=== PATIENT | female | born 1955 | race Caucasian/White ===

== ENCOUNTER → 2016-05-24 | Outpatient (CLI) | payer OTHER ==
[~2016-05-24] MED LIST: ACID REDUCER; CALC-671 PO; CETI10TA17 PO; GABA-488 PO; HERCEPTIN; KOMBIGLYZE; LETR2.5T5 PO; LIRA0.6P SQ; LOSA1TAB23 PO; MELA10TA3 PO; Metoprolol ER; Simvastatin
--- NOTE | 2016-05-24 14:27 | Diagnostic Imaging Report ---
INDICATION: Elevated LFTs. FINDINGS: Real-time imaging shows mild increased echogenicity of the liver consistent with some fatty change. The liver is not enlarged. Bile ducts are not dilated. Common duct measures 4 mm. Gallbladder appears normal with gallbladder wall measuring 2 mm. There is no pericholecystic edema. The body and tail of the pancreas are not well visualized. Right kidney appears normal measuring 10.3 x 5.1 cm. There is a 1.5-cm cortical cyst incidentally noted. There is no ascites. The portal and hepatic vein are patent. IMPRESSION: 1. Findings consistent with mild hepatic steatosis. 2. Normal-appearing gallbladder and bile ducts. 3. A 1.5-cm cyst, cortex of the right kidney. Dictated by: Dictated on workstation # [id number]
== END ==
LOC: RAD 13:30
PROVIDERS: ATTEND Family Medicine
DX: K76.0 Fatty (change of) liver, not elsewhere classified (principal); K28.1 Acute gastrojejunal ulcer with perforation; Z85.3 Personal history of malignant neoplasm of breast
CPT/HCPCS: 76705

== ENCOUNTER → 2016-10-03 | Outpatient (CLI) | payer OTHER ==
[2016-10-03 13:43] LABS: BASOPHILS # (AUTO) 0.1 10^3/uL (0.0-0.1); BASOPHILS % (AUTO) 1 % (0-10); EOSINOPHILS # (AUTO) 0.8 10^3/uL (0.0-0.3); EOSINOPHILS % (AUTO) 9 % (0-10); LYMPHOCYTES # (AUTO) 3.2 X 10^3 (1.0-4.0); LYMPHOCYTES % (AUTO) 35 % (12-44); MEAN CORPUSCULAR HEMOGLOBIN 32 PG (25-34); MEAN CORPUSCULAR HGB CONC 33 G/DL (32-36); MEAN CORPUSCULAR VOLUME 97 FL (80-99); MEAN PLATELET VOLUME 10.4 FL (7.4-10.4); MONOCYTES # (AUTO) 0.9 X 10^3 (0.0-1.0); MONOCYTES % (AUTO) 10 % (0-12); NEUTROPHILS # (AUTO) 4.2 X 10^3 (1.8-7.8); NEUTROPHILS % (AUTO) 46 % (42-75); PATH WILL NEED TO REVIEW SMEAR PATH TO REVIEW; PLATELET COUNT 364 10^3/uL (130-400); RED BLOOD COUNT 3.68 10^6/uL (4.35-5.85); RED CELL DISTRIBUTION WIDTH 13.5 % (10.0-14.5); RETICULOCYTE % 0.86 % (0.50-2.40); WHITE BLOOD COUNT 9.3 10^3/uL (4.3-11.0)
[2016-10-03 14:39] LABS: BAND NEUTROPHILS 0 %; BASOPHILS % (MANUAL) 1 %; EOSINOPHILS % (MANUAL) 9 %; LYMPHOCYTES % (MANUAL) 40 %; NEUTROPHILS % (MANUAL) 40 %
[2016-10-04 07:03] LABS: FOLIC ACID >24.0 ng/mL (1.5-24.0); TRANSFERRIN 269 mg/dL (197-359)
== END ==
LOC: LAB 13:04
PROVIDERS: ATTEND Internal Medicine
DX: C50.912 Malignant neoplasm of unspecified site of left female breast (principal); D64.9 Anemia, unspecified; R63.4 Abnormal weight loss
CPT/HCPCS: 36415; 82607; 82728; 82746; 83540; 84466; 85007; 85027; 85045; 86300

== ENCOUNTER → 2016-10-04 | Outpatient (CLI) | payer OTHER ==
[~2016-10-04] MED LIST changes: +CATHETER FLUSH 10 ML SYR IV PRN; +IOHEXOL 350 MG/ML 100 ML (OMNIPAQUE 350) VIAL IV ONE; +NS 100 ML (IVPB) BAG IV ONE
[2016-10-04 10:40] LABS: CREATININE SERUM 1.06 MG/DL (0.60-1.30)
--- NOTE | 2016-10-04 12:18 | Diagnostic Imaging Report ---
PROCEDURE: CT abdomen and pelvis with contrast. TECHNIQUE: Multiple contiguous axial images were obtained through the abdomen and pelvis after administration of intravenous contrast. INDICATION: Abdominal cramps. COMPARISON: None. FINDINGS: The lung bases are clear. There are bilateral breast implants noted. The liver has a slightly nodular contour which may be of no significance; however, correlate clinically with any signs/symptoms of cirrhosis. The gallbladder is mildly contracted. There is no biliary dilatation. The pancreas appears unremarkable. There are multiple enhancing soft tissue nodules in the left upper quadrant, which are likely splenules. An intact spleen is not visualized. There are small probable bilateral renal cysts. The appendix appears normal. The uterus and adnexa appear unremarkable. There is no evidence of bowel obstruction. No focal inflammatory process is demonstrated. The abdominal aorta appears normal in caliber. No osseous abnormality is seen. IMPRESSION: 1. The liver is slightly lobular in contour which may be of no significance but can be seen with cirrhosis. Correlate clinically 2. An intact spleen is not demonstrated. There are multiple enhancing soft tissue nodules in the left upper quadrant which are probably splenules. 3. Bilateral renal cysts. 4. No additional significant abnormality is seen. No acute abnormality is demonstrated. Dictated by: Dictated on workstation # [id number]
== END ==
LOC: RAD 09:06
PROVIDERS: ATTEND Internal Medicine
DX: R19.00 Intra-abdominal and pelvic swelling, mass and lump, unspecified site (principal); N28.1 Cyst of kidney, acquired; C50.912 Malignant neoplasm of unspecified site of left female breast; D64.9 Anemia, unspecified; R63.4 Abnormal weight loss
CPT/HCPCS: 36415; 74177; 82565; 84520

== ENCOUNTER 2016-10-25 05:32 | Outpatient (CLI) | payer OTHER ==
[~2016-10-25] VITALS: Ht 162.6 cm; Wt 68.0 kg
[~2016-10-25 05:32] MED LIST changes: -CATHETER FLUSH 10 ML SYR IV PRN; -IOHEXOL 350 MG/ML 100 ML (OMNIPAQUE 350) VIAL IV ONE; -NS 100 ML (IVPB) BAG IV ONE
== END 2016-10-25 14:17 ==
LOC: PREOP 05:32
PROVIDERS: ATTEND Surgery
DX: Z01.818 Encounter for other preprocedural examination (principal); R10.13 Epigastric pain; K21.9 Gastro-esophageal reflux disease without esophagitis; R63.4 Abnormal weight loss; R19.4 Change in bowel habit

== ENCOUNTER 2016-10-29 07:57 | Day surgery (SDC) | payer OTHER ==
[~2016-10-29] VITALS: Ht 162.6 cm; Wt 68.0 kg
[2016-10-29] MEDS ORDERED: LACTATED RINGERS 1,000 ML IV STA (08:11)
[2016-10-29] MEDS ORDERED: HURRICAINE EXT TUBE (BENZOCAINE) XX PRN (08:15)
[2016-10-29] MEDS ORDERED: LACTATED RINGERS 1,000 ML IV ONE (08:15)
[2016-10-29 08:45] VITALS: BP 106/77
[2016-10-29] MEDS ORDERED: FAMOTIDINE 20MG/2ML IV (PEPCID) IVP ONE (08:45)
[2016-10-29] MEDS ORDERED: ONDANSETRON 4 MG/2 ML (SDV) Z0FRAN IVP ONE (08:45)
[2016-10-29] MEDS ORDERED: FAMOTIDINE 20MG/2ML IV (PEPCID) ONE (08:46)
[2016-10-29] MEDS ORDERED: ONDANSETRON 4 MG/2 ML (SDV) Z0FRAN ONE (08:46)
[2016-10-29] MEDS ORDERED: PROPOFOL INJECTION 50 ML IV ONE (09:15)
[2016-10-29] MEDS ORDERED: LIDOCAINE PF 2% 5 ML (XYLOCAINE) VIAL ONE (09:15)
--- NOTE | 2016-10-29 09:17 | Progress Note-Pre Operative ---
Pre-Operative Progress Note H&P Reviewed The H&P was reviewed, patient examined and no changes noted. Date Seen by Provider: Oct 29, 2016 Time Seen by Provider: :17 Date H&P Reviewed: Oct 29, 2016 Time H&P Reviewed: :17 Pre-Operative Diagnosis: weight loss, epigastric pain, change in bowel habits LALO PIRES DO Oct 29, 2016 9:17 am
--- NOTE | 2016-10-29 10:22 | Progress Note-Post Operative ---
Post-Operative Progess Note Surgeon (s)/Offal Icer Poultry (s) Surgeon LALO PIRES DO Offal Icer Poultry: na Pre-Operative Diagnosis weight loss, epigastric pain, change in bowel habits Post-Operative Diagnosis normal egd, colonoscopy Procedure & Operative Findings Date of Procedure 10/29/16 Procedure Performed/Findings egd c biopsy, colonoscopy Anesthesia Type per pre k special education teacher Estimated Blood Loss Estimated blood loss (mL): none Specimens/Packing Specimens Removed antrum LALO PIRES DO Oct 29, 2016 10:22
--- NOTE | 2016-10-29 10:24 | Discharge Inst-Simple/Standard ---
Discharge Inst-Standard Patient Instructions/Follow Up Plan of Care/Instructions/FU: 2 weeks Brigitte Activity as Tolerated: Yes Discharge Diet: Regular Diet LALO PIRES DO Oct 29, 2016 10:24
[2016-10-29 10:50] VITALS: BP 106/77
--- NOTE | 2016-10-29 11:01 | OPERATIVE REPORT ---
DATE OF SERVICE: 10/29/2016 PREOPERATIVE DIAGNOSIS: Weight loss, epigastric abdominal pain, change in bowel habits. POSTOPERATIVE DIAGNOSIS: Normal EGD, normal colonoscopy. PROCEDURE: EGD with biopsy, colonoscopy. ANESTHESIA: Per COUNSELING CASE MANAGER. SURGEON: Lalo Briggs DO ESTIMATED BLOOD LOSS: None. COMPLICATIONS: None. INDICATIONS: The patient is a 60-year-old female with weight loss, change in bowel habits and some epigastric abdominal pain. She understands the risks and benefits of procedure and wished to proceed with procedure. Consent was on chart. DESCRIPTION OF PROCEDURE: The patient was taken to the endoscopy suite, placed in left lateral recumbent position. Timeout was performed. Scope was inserted in mouth, down the esophagus, stomach and into the duodenum. There were no polyps, masses or ulcerations within the duodenum. The scope was slowly retracted back into the stomach, which was further insufflated. No significant changes to the mucosa. There are no polyps, masses or ulcerations. A biopsy of the antrum was obtained. Scope was also retroflexed noting no other pathology. Scope was returned to its normal position, slowly withdrawn back into the distal esophagus. There are no erythematous changes, polyps, masses or ulcerations. Scope was slowly retracted back until completely removed, noting no other pathology. Digital rectal exam was performed. There were no polyps, masses or ulcerations. Scope was inserted in the rectum and advanced all the way to the cecum with minimal difficulty. Prep was adequate with irrigation and suction. The scope was then slowly retracted back. There were no polyps, masses or ulcerations in the cecum, ascending, transverse, descending or sigmoid colon. In the rectum, it was also retroflexed noting no other pathology. The scope was then returned to its normal position, slowly withdrawn until completely removed, noting no other pathology. The patient tolerated procedure well without any complications. She was taken to recovery room in stable condition. RECOMMENDATIONS: The patient will need repeat colonoscopy in 10 years unless family history of colon cancer which would then be 5 years. If she has any problems prior to that, she should be reevaluated at that time. The patient will follow up in the office to discuss biopsy results and see how she is doing at that time. Job ID: [id number] DocumentID: [id number] Dictated Date: 10/29/2016 10:27:55 Hotel Sales Manager Date: 10/29/2016 11:00:52 Dictated By: LALO BRIGGS DO
[2016-10-29 11:20] VITALS: BP 124/67
[2016-10-29 11:31] VITALS: BP 124/67
== END 2016-10-29 11:30 | disposition home or self-care (01) ==
LOC: ENDO 07:57
PROVIDERS: ATTEND Surgery
DX: R63.4 Abnormal weight loss (principal); R10.13 Epigastric pain; R19.4 Change in bowel habit; E11.9 Type 2 diabetes mellitus without complications; I10 Essential (primary) hypertension; Z85.3 Personal history of malignant neoplasm of breast; E78.5 Hyperlipidemia, unspecified; G47.33 Obstructive sleep apnea (adult) (pediatric); Z79.899 Other long term (current) drug therapy
CPT/HCPCS: 82962; 88305; 88342

== ENCOUNTER → 2020-09-19 | Outpatient (CLI) | payer BC ==
[~2020-09-19] MED LIST changes: +ACHD5005 PO
--- NOTE | 2020-09-19 12:47 | Diagnostic Imaging Report ---
PROCEDURE: US Renal Bilateral. TECHNIQUE: Multiple Real-time grayscale images were obtained over the kidneys in various projections bilaterally. INDICATION: Stage II chronic kidney disease. COMPARISON: The study is interpreted in correlation with an abdominal CT of 10/04/2016. FINDINGS: The right kidney measures 10 cm. Its cortical thickness and echotexture are unremarkable. It shows no appreciable solid or cystic mass and no perinephric collection is found. The left kidney is small measuring 7.7 cm in long axis. There are anechoic cysts with posterior acoustical enhancement and no vascularized or soft tissue component found at the upper and middle thirds. The upper pole cyst measures 1.8 cm. The mid pole lesion is also 1.8 cm. The urinary bladder appears unremarkable. The left renal cortex is somewhat thinned and its generalized parenchymal echotexture is slightly elevated. Its volume loss, cortical thinning, and cyst formation are new from the comparison CT. IMPRESSION: There is some atrophy of the left kidney with a 1.8 cm simple appearing cyst in its upper and middle one/third. No hydronephrosis. The unobstructed right kidney is nonfocal and nonacute. No appreciable bladder pathology. Dictated by: Dictated on workstation # [id number]
== END ==
LOC: RAD 11:00
PROVIDERS: ATTEND Internal Medicine Nephrology
DX: N26.1 Atrophy of kidney (terminal) (principal); N28.1 Cyst of kidney, acquired; N18.31 Chronic kidney disease, stage 3a
CPT/HCPCS: 76770

== ENCOUNTER → 2020-09-19 | Outpatient (CLI) | payer BC ==
[~2020-09-19] MED LIST changes: +GADOBUTROL 7.5 MMOL/7.5 ML (GADAVIST) VIAL IV ONE
--- NOTE | 2020-09-19 12:40 | Diagnostic Imaging Report ---
PROCEDURE: MR imaging of the brain with and without contrast. TECHNIQUE: Multiplanar, multisequence MR imaging of the brain was performed with and without contrast. INDICATION: Left breast cancer. COMPARISON: I have no relevant comparison. FINDINGS: There is a very mild degree of senescent cerebral cortical atrophy and volume loss. No kris hydrocephalus. There are also mild scattered subcortical and periventricular white matter T2 hyperintensities, likely mild chronic small vessel sequelae. There are, however, no findings of focal or generalized cerebral edema and no features suggestive of an elevation of the intracranial pressures. There are no findings of hemorrhage. There are no areas of abnormal parenchymal or meningeal enhancement following contrast. No space-occupying lesion or mass. There were no findings of intracerebral involvement by neoplasm, primary or metastatic. The orbital contents are unremarkable. There is thickening of the membranes in the right greater than left maxillary sinuses up to about 4 mm. There is opacification and occlusion of multiple bilateral ethmoid air cells as well as some membrane thickening in the midline hypoplastic frontal sinuses. There is membrane disease and partial occlusion of right greater than left sphenoid sinuses. No discrete air-fluid level. There is no mastoid effusion. IMPRESSION: 1. The brain shows very slight senescent atrophy and nonspecific mild white matter small vessel sequelae but no evidence for neoplasm, infarct, hemorrhage, or other acute appearing intracerebral insults. 2. Substantial but largely chronic appearing paranasal sinus disease as described. Dictated by: Dictated on workstation # [id number]
== END ==
LOC: RAD 08:41
PROVIDERS: ATTEND Internal Medicine
DX: C50.912 Malignant neoplasm of unspecified site of left female breast (principal); R51.9 Headache, unspecified; Z17.0 Estrogen receptor positive status [ER+]
CPT/HCPCS: 70553

== ENCOUNTER → 2021-12-05 | Outpatient (CLI) | payer BC ==
[~2021-12-05] MED LIST changes: -GADOBUTROL 7.5 MMOL/7.5 ML (GADAVIST) VIAL IV ONE
--- NOTE | 2021-12-05 16:34 | Diagnostic Imaging Report ---
PROCEDURE: US Renal Bilateral. TECHNIQUE: Multiple real-time grayscale images were obtained over the kidneys in various projections bilaterally. INDICATION: Chronic renal disease. Comparison with 09/19/2020 ultrasound. FINDINGS: Right kidney measures 10 x 4.4 x 4.4 cm. There is an acoustical shadowing calculus lower pole calyx measuring approximately 9 x 7 mm. The left kidney measures 10 x 4.5 x 5 cm. There is some cortical thinning left kidney. There are 2 cysts largest measuring approximately 1.5 cm. Suggestion of small acoustical shadowing calyceal calculus. There is no hydronephrosis within the kidneys. Bladder appears normal. Left ureteral jet was seen. Right ureteral jet was not identified. IMPRESSION: 1. No evidence of obstructive uropathy. 2. Stable appearing cyst left kidney. Dictated by: Dictated on workstation # [id number]
== END ==
LOC: RAD 12:30
PROVIDERS: ATTEND Internal Medicine
DX: N18.31 Chronic kidney disease, stage 3a (principal)
CPT/HCPCS: 76770

== ENCOUNTER → 2022-07-16 | Outpatient (CLI) | payer BC ==
--- NOTE | 2022-07-16 10:08 | Diagnostic Imaging Report ---
INDICATION: Postmenopausal screening COMPARISON: None FINDINGS: AP Spine L1-L4: [BMD (g/cm2): 1.110] [T-Score: -0.8] [Z-Score: 0.7] [BMD Previous: NA] [BMD % Change: NA] LT Hip Neck: [BMD (g/cm2): 0.878] [T-Score: -1.1] [Z-Score: 0.3] LT Hip Total: [BMD (g/cm2):0.854] [T-Score:-1.2] [Z-Score: 0.0] [BMD Previous: NA] [BMD % Change: NA] RT Hip Neck: [BMD (g/cm2):0.839] [T-Score:-1.4] [Z-Score:0.0] RT Hip Total: [BMD (g/cm2):0.833] [T-score:-1.4] [Z-Score:-0.2] [BMD Previous:NA] [BMD % Change:NA] *Indicates significant change from prior examination based on 95% confidence level. World Health Organization criteria for BMD interpretation classify patients as Normal (T-score at or above -1.0), Osteopenic (T-score between -1.0 and -2.5) or Osteoporotic (T-score at or below -2.5). LIMITATIONS AND MODIFICATION: None. FRACTURE RISK (FRAX SCORE): The ten year probability of (%): Major Osteoporotic Fracture: [25.4] Hip Fracture: [2.7] IMPRESSION: 1. Normal bone mineral density. 2. See below National Osteoporosis Foundation guidelines on when to potentially initiate pharmacologic therapy. Based on the National Osteoporosis Foundation Guidelines, pharmacologic treatment should be initiated in any of the following, unless clinical conditions suggest otherwise: * Any patient with prior fragility fracture of the hip or vertebrae. A spine fracture indicates 5X risk for subsequent spine fracture and 2X risk for subsequent hip fracture. * Osteoporosis (T-score <-2.5). * Postmenopausal women and men age 50 and older with low bone mass/osteopenia (T-score between -1.0 and -2.5) by DXA and 10-year major osteoporotic fracture greater than 20% or a 10-year probability of hip fracture greater than 3%. These fracture risks are supplied above in the FRAX score, if applicable. * Clinician judgement and/or patient preferences may indicate treatment for people with 10-year fracture probabilities above or below these levels. Dictated by: Dictated on workstation # [id number]
== END ==
LOC: RAD 08:50
PROVIDERS: ATTEND Nurse Practitioner Family
DX: Z13.820 Encounter for screening for osteoporosis (principal); Z79.3 Long term (current) use of hormonal contraceptives; I12.9 Hypertensive chronic kidney disease with stage 1 through stage 4 chronic kidney disease, or unspecified chronic kidney disease; N18.30 Chronic kidney disease, stage 3 unspecified; Z76.0 Encounter for issue of repeat prescription; K21.9 Gastro-esophageal reflux disease without esophagitis; F41.1 Generalized anxiety disorder; L50.0 Allergic urticaria; C50.919 Malignant neoplasm of unspecified site of unspecified female breast; H65.191 Other acute nonsuppurative otitis media, right ear; J01.80 Other acute sinusitis; J30.89 Other allergic rhinitis; Z78.0 Asymptomatic menopausal state
CPT/HCPCS: 77080